=== PATIENT | male | born 1975 | race African-American/Black ===

== ENCOUNTER 2021-05-03 09:37 | Emergency (ER) | payer SELFPAY ==
[~2021-05-03] VITALS: Ht 185.4 cm; Wt 93.0 kg
[2021-05-03 09:57] VITALS: BP 128/87
== END 2021-05-03 12:06 | disposition home or self-care (01) ==
LOC: ER 09:37
DX: K04.7 Periapical abscess without sinus (principal); R51.9 Headache, unspecified; F17.210 Nicotine dependence, cigarettes, uncomplicated
CPT/HCPCS: 70486